=== PATIENT | female | born 1965 | race American Indian/Alaskan Native ===

== ENCOUNTER 2016-10-01 08:26 | Outpatient (CLI) | payer OTHER ==
--- NOTE | 2016-10-01 09:37 | Cat Scan Report ---
CT of the cervical spine without contrast. History: Neck pain, spondylosis. Findings: Comparison is made to previous study performed on September 16, 2015. There no fractures, subluxations, or other acute findings. At the C2-3 level, there is a small central spur posteriorly with minimal effacement of the subarachnoid space. A similar even smaller central spur is seen at C3-4 with no impingement. The C4-5 level is unremarkable. At C5-6,, there is mild spondylosis with broad-based posterior osteophyte formation. At C6-7, there is a left paracentral posterior osteophyte with mild impingement on the subarachnoid space. There is also uncovertebral joint hypertrophy with mild bilateral foraminal stenosis, unchanged. The C7-T1 level is unremarkable. There is reversal of the lordotic curvature in the upper cervical spine. The odontoid is intact. Impression: Multilevel spondylosis most pronounced at C5-6 and C6-7 with facet arthropathy especially at C6-7. Reversal of cervical lordosis is present. Overall, the findings have not changed appreciably since the previous study.
== END 2016-10-01 08:27 | disposition home or self-care (01) ==
LOC: CT 08:26
PROVIDERS: ATTEND Orthopaedic Surgery
DX: M48.02 Spinal stenosis, cervical region (principal); M47.22 Other spondylosis with radiculopathy, cervical region; M12.88 Other specific arthropathies, not elsewhere classified, other specified site; M25.78 Osteophyte, vertebrae; M43.8X2 Other specified deforming dorsopathies, cervical region
CPT/HCPCS: 72125

== ENCOUNTER 2017-02-26 07:10 | Outpatient (CLI) | payer OTHER ==
--- NOTE | 2017-02-26 08:50 | Magnetic Resonance Report ---
MRI LUMBAR SPINE WITHOUT CONTRAST HISTORY: Radiculopathy lumbar region, back pain. TECHNIQUE: axial T1, T2. sagittal T1,T2, STIR. COMPARISON: none. FINDINGS: The conus terminates at L1. No signal abnormality or mass. The cauda equina is within normal limits. No central canal stenosis. Normal height and alignment of the lumbar vertebra. The facet joints are in appropriate relationship. Normal bone marrow signal. 1 cm vertebral bone hemangioma in L2 is noted. No acute fracture or suspicious bone lesion. There is mild disc desiccation and narrowing at L5-S1. The remaining discs are within normal limits. The facet joints are within normal limits. The paraspinal soft tissues are unremarkable. L1-2: Normal. L2-3: Normal. L3-4: Normal. L4-5: Normal. L5-S1: Mild disc desiccation and narrowing is again noted. There is a moderate to large left paracentral disc extrusion which travels inferiorly along the posterior surface of S1 and exerts mass effect on the left S1 nerve root within the spinal canal. The disc extrusion measures 13 mm transverse, 5 mm AP and 9 mm craniocaudal. There is also moderate left neural foraminal narrowing estimated at 50-75%. The right neural foramen is within normal limits. IMPRESSION: Left paracentral disc extrusion at L5-S1 as described above. Correlate for left L1 radiculopathy. Mild degenerative disc findings are also noted at L5-S1.
== END 2017-02-26 07:11 | disposition home or self-care (01) ==
LOC: MRI 07:10
PROVIDERS: ATTEND General Practice
DX: M51.16 Intervertebral disc disorders with radiculopathy, lumbar region (principal)
CPT/HCPCS: 72148

== ENCOUNTER 2017-09-22 08:25 | Outpatient (CLI) | payer OTHER ==
--- NOTE | 2017-09-22 10:49 | Mammography Report ---
BILATERAL MAMMOGRAM: FINDINGS: The breasts are almost entirely fat (<25% glandular). No mass, distortion, suspicious calcification, or skin change is seen. No interval change compared to our September 2015. CAD was utilized. IMPRESSION: Negative mammogram. There is no mammographic evidence of malignancy. RECOMMENDATION: Follow-up per ACS guidelines. BI-RADS CATEGORY: 1 = Negative ACR BI-RADS MAMMOGRAPHIC CODES: 0 = Needs additional imaging evaluation; 1 = Negative; 2 = Benign; 3 = Probably benign; 4 = Suspicious; 5 = Malignant; 6 = Known biopsy-proven malignancy COMMENT: 1. Dense breast tissue, i.e., adenosis, fibrocystic changes, etc., may obscure an underlying neoplasm. 2. Approximately 10% of cancers are not detected with mammography. 3. A negative mammography report should not delay biopsy if a clinically suspicious mass is present. COMMENT: Patient follow-up letters are generated in [facility] [employer].
== END 2017-09-22 08:26 | disposition home or self-care (01) ==
LOC: MAMMO 08:25
PROVIDERS: ATTEND General Practice
DX: Z12.31 Encounter for screening mammogram for malignant neoplasm of breast (principal); M19.90 Unspecified osteoarthritis, unspecified site; F32.9 Major depressive disorder, single episode, unspecified; Z88.8 Allergy status to other drugs, medicaments and biological substances
CPT/HCPCS: 77067

== ENCOUNTER 2018-08-19 07:12 | Outpatient (CLI) | payer OTHER ==
--- NOTE | 2018-08-19 08:13 | Ultrasound Report ---
ULTRASOUND ABDOMEN COMPLETE: TECHNIQUE: Transabdominal ultrasound with color Doppler interrogation. HISTORY: abdominal pain. COMPARISON: none. FINDINGS: LIVER: Normal. BILIARY SYSTEM: Small amount of sludge and a few small shadowing gallstones are identified in the gallbladder. No evidence for abnormal dilatation, wall thickening or surrounding fluid. The CBD measures 4.6 mm. PANCREAS: Normal. SPLEEN: Normal. KIDNEYS: Normal. AORTA/IVC: Normal. ASCITES: None. IMPRESSION: Cholelithiasis. No evidence for acute cholecystitis.
== END 2018-08-19 07:13 | disposition home or self-care (01) ==
LOC: US 07:12
PROVIDERS: ATTEND General Practice
DX: K80.20 Calculus of gallbladder without cholecystitis without obstruction (principal)
CPT/HCPCS: 76700

== ENCOUNTER 2019-11-16 09:04 | Outpatient (CLI) | payer OTHER ==
--- NOTE | 2019-11-16 10:06 | Mammography Report ---
DIGITAL SCREENING MAMMOGRAM WITH CAD, 11/16/2019 INDICATION: Routine screening mammography. SCREENING MAMMO TECHNIQUE: Digital bilateral 2D mammography was obtained in the craniocaudal and mediolateral obliq ue projections. This examination was interpreted with the benefit of Computer-Aided Detection analysi s. COMPARISON: 09/22/2017 FINDINGS: Breast Density: There are scattered areas of fibroglandular density. There is no evidence of dominant mass, suspicious calcifications or architectural distortion in eithe r breast. IMPRESSION: No evidence of malignancy Follow up recommendation: Routine yearly BI-RADS Category 1: Negative. A "normal" or negative report should not discourage follow up or biopsy of a clinically significant f inding. A written summary of these findings will be mailed to the patient. The patient will be entered into a mammography reporting system which will generate a reminder letter for the patient's next appointmen t at the appropriate interval. The [employer] recommends yearly mammograms starting at age 40 and continuing as l sandeep as a woman is in good health. Breast MRI is recommended for women with an approximate 20-25% or greater lifetime risk of breast cancer, including women with a strong family history of breast or ova halima cancer or who have been treated for Hodgkin's disease. Signer Name: Sabas Plasencia MD Signed: 11/16/2019 10:02 AM Workstation Name: [id number]
== END 2019-11-16 09:05 | disposition home or self-care (01) ==
LOC: SPVWC 09:04
PROVIDERS: ATTEND General Practice
DX: Z12.31 Encounter for screening mammogram for malignant neoplasm of breast (principal)
CPT/HCPCS: 77067

== ENCOUNTER 2020-12-03 08:08 | Outpatient (CLI) | payer OTHER ==
--- NOTE | 2020-12-03 11:16 | Mammography Report ---
DIGITAL SCREENING MAMMOGRAM WITH CAD, 12/03/2020 CLINICAL INFORMATION / INDICATION: Routine screening mammography. TECHNIQUE: Digital bilateral 2D mammography was obtained in the craniocaudal and mediolateral obliqu e projections. This examination was interpreted with the benefit of Computer-Aided Detection analysis . COMPARISON: 09/22/2017 FINDINGS: Breast Density: The breasts are almost entirely fatty. No dominant mass, suspicious calcifications, or architectural distortion in either breast. No interval change. IMPRESSION: No mammographic evidence of malignancy. Follow up recommendation: Routine yearly BI-RADS Category 1: Negative. A "normal" or negative report should not discourage follow up or biopsy of a clinically significant f inding. A written summary of these findings will be mailed to the patient. The patient will be entered into a mammography reporting system which will generate a reminder letter for the patient's next appointmen t at the appropriate interval. The [employer] recommends yearly mammograms starting at age 40 and continuing as l sandeep as a woman is in good health. Breast MRI is recommended for women with an approximate 20-25% or greater lifetime risk of breast cancer, including women with a strong family history of breast or ova halima cancer or who have been treated for Hodgkin's disease. Signer Name: Sharon Estevez MD Signed: 12/03/2020 11:11 AM Workstation Name: [id number]
== END 2020-12-03 08:09 | disposition home or self-care (01) ==
LOC: SPVWC 08:08
PROVIDERS: ATTEND Obstetrics & Gynecology
DX: Z12.31 Encounter for screening mammogram for malignant neoplasm of breast (principal)
CPT/HCPCS: 77067